=== PATIENT | female | born 1995 | race Two or more races ===

== ENCOUNTER 2020-07-23 03:41 | Inpatient (IN) | payer SELFPAY ==
[2020-07-23 04:36] LABS: APPEARANCE,URINE TURBID; BILIRUBIN,URINE NEGATIVE (NEGATIVE); COLOR,URINE PINK; GLUCOSE, URINE NEGATIVE (NEGATIVE); KETONES,URINE NEGATIVE (NEGATIVE); LEUKOCYTE ESTERASE,URINE SMALL (NEGATIVE); NITRITE,URINE NEGATIVE (NEGATIVE); PROTEIN,URINE 100 mg/dL (NEGATIVE); URINE SPECIFIC GRAVITY 1.009; UROBILINOGEN,URINE NEGATIVE mg/dL (<2.0)
[2020-07-23] MEDS ORDERED: RINGERS SOLUTION,LACTATED 1,000 ML IV ONE (04:56)
[2020-07-23] MEDS ORDERED: RINGERS SOLUTION,LACTATED 1,000 ML IV PRN (04:56)
[2020-07-23] MEDS ORDERED: PENICILLIN G POTASSIUM 5,000,000 UNIT in DEXTROSE 5%-WATER 100 ML IV ONE (04:56)
[2020-07-23] MEDS ORDERED: PENICILLIN G-K 5 MILLION UNIT VIAL ONE (05:02)
[2020-07-23] MEDS ORDERED: OXYTOCIN/0.9 % SODIUM CHLORIDE 30 UNIT/500 ML RTUINJ ONE (05:30)
[2020-07-23] MEDS ORDERED: LIDOCAINE 1% INJ-PF (10 MG/ML) 30 ML SDV ONE (05:30)
[2020-07-23] MEDS ORDERED: MISOPROSTOL 0.2 MG TABLET ONE (05:30)
[2020-07-23] MEDS ORDERED: OXYTOCIN 10 UNIT/ML VIAL ONE (05:30)
[2020-07-23 05:34] LABS: ABSOLUTE LYMPHOCYTES (AUTO) 3.2 10^3/uL (0.5-4.7); ABSOLUTE MONOCYTES (AUTO) 0.8 10^3/uL (0.1-1.4); BASOPHILS % (AUTO) 0.3 % (0-2); EOSINOPHILS % (AUTO) 0.3 % (0-6); HEMATOCRIT 37.4 % (36.0-47.0); HEMOGLOBIN 12.9 g/dL (12.0-15.5); LYMPHOCYTES % (AUTO) 35.8 % (13-45); MEAN CORPUSCULAR HEMOGLOBIN 29.4 pg (27.0-33.4); MEAN CORPUSCULAR HGB CONC 34.4 g/dL (32.0-36.0); MEAN CORPUSCULAR VOLUME 85 fl (80-97); MONOCYTES % (AUTO) 8.6 % (3-13); PLATELET COUNT 242 10^3/uL (150-450); RED BLOOD COUNT 4.39 10^6/uL (3.72-5.28); RED CELL DISTRIBUTION WIDTH 14.5 % (11.5-14.0); TOTAL CELLS COUNTED % (AUTO) 100 %
--- NOTE | 2020-07-23 05:53 | Admission Physical ---
Datetime Report Generated by CPN: 07/23/2020 05:52 CURRENT ADMISSION Chief Complaint: Uterine Contractions Indication for Induction: Not Applicable Admit Impression : Term, Intrauterine Admit Plan: Admit to Unit; Initiate Labor Protocol ALLERGIES Medication Allergies: No Medication Allergies: no Latex: No Latex Allergies Food Allergies: no Environmental Allergies: no OBSTETRICAL HISTORY EDC: 08/04/2020 00:00 : 2 Para: 1 Term: 1 : 0 SAB: 0 IAB: 0 Ectopic: 0 Livin Cesareans: 0 VBACs: 0 Multiple Births: 0 Gestational Diabetes: No Rh Sensitization: No Incompetent Cervix: No DALE: No Infertility: No ART Treatment: No Uterine Anomaly: No IUGR: No Hx Previous C/S: No Macrosomia: No Hx Loss/Stillborn: No PIH: No Hx : No Placenta Previa/Abruption: No Depression/PP Depression: No PTL/PROM: No Post Hemorrhage: No Current Procedures: Ultrasound SEE RECORDS Alcohol: No Marijuana : No Cocaine: No Other Illicit Drugs: No Advised to Stop: No MEDICAL HISTORY Diabetes: No Blood Transfusion: No Pulmonary Disease (Asthma, TB): No Breast Disease: No Hypertension: No Manager Management Surgery: No Heart Disease: No Hosp/Surgery: No Autoimmune Disorder: No Anesthetic Complications: No Kidney Disease: No Abnormal Pap Smear: No Neuro/Epilepsy: No Psychiatric Disorders: No Other Medical Diseases: No Hepatitis/Liver Disease: No Significant Family History: No Varicosities/Phlebitis: No Trauma/Violence : No Thyroid Dysfunction: No INFECTIOUS HISTORY Gonorrhea: No Genital Herpes: No Chlamydia: Yes Tuberculosis: No Syphilis: No Hepatitis: No HIV/AIDS Exposure: No Rash or Viral Illness: No HPV: No PHYSICAL EXAM General: Normal HEENT: Normal Neurologic: Normal Thyroid: Normal Heart: Normal Lungs: Normal Breast: Deferred Back: Normal Abdomen: Normal Genitourinary Exam: Normal Extremities: Normal DTRs: Normal Pelvic Type: Adequate FETUS A EGA: 38.2 PLANS FOR LABOR AND DELIVERY Feeding Preference: Formula (Annotations: Data stored by CPN on behalf of user) INFORMED CONSENT Signature: with User ID: [email or web address]
[2020-07-23] MEDS ORDERED: ACETAMINOPHEN WITH CODEINE #3 TABLET PO PRN (06:10)
[2020-07-23] MEDS ORDERED: MEASLES,MUMPS&RUBELLA VACC/PF 0.5 ML VIAL SUBCUT PRN (06:10)
[2020-07-23] MEDS ORDERED: MAGNESIUM HYDROXIDE SUSP 30 ML UDCUP PO PRN (06:10)
[2020-07-23] MEDS ORDERED: PROMETHAZINE HCL INJ 25 MG/1 ML VIAL IV PRN (06:10)
[2020-07-23] MEDS ORDERED: OXYTOCIN/0.9 % SODIUM CHLORIDE 30 UNIT/500 ML RTUINJ IV PRN (06:10)
[2020-07-23] MEDS ORDERED: NA PHOS,M-B/NA PHOS,DI-BA (ADULT) 133 ML ENEMA PR PRN (06:10)
[2020-07-23] MEDS ORDERED: PROMETHAZINE HCL 25 MG SUPP.RECT PR PRN (06:10)
[2020-07-23] MEDS ORDERED: DIBUCAINE 1% OINTMENT 28 GM TP PRN (06:10)
[2020-07-23] MEDS ORDERED: DIPHENHYDRAMINE HCL 25 MG CAPSULE PO PRN (06:10)
[2020-07-23] MEDS ORDERED: DIPH/PERTUSS(ACELL)/TETANUS VAC/PF 0.5 ML SYR (>=10YO) IM PRN (06:10)
[2020-07-23] MEDS ORDERED: ZOLPIDEM TARTRATE 5 MG TABLET PO PRN (06:10)
[2020-07-23] MEDS ORDERED: PROMETHAZINE HCL 25 MG TABLET PO PRN (06:10)
[2020-07-23] MEDS ORDERED: PSEUDOEPHEDRINE HCL 30 MG TABLET PO PRN (06:10)
[2020-07-23] MEDS ORDERED: BENZOCAINE/MENTHOL AEROSOL SPRAY 56 ML TOP PRN (06:10)
[2020-07-23] MEDS ORDERED: ACETAMINOPHEN 650 MG SUPP.RECT PR PRN (06:10)
[2020-07-23] MEDS ORDERED: GLYCERIN/WITCH HAZEL LEAF 1 EACH MED..WIPE TP PRN (06:10)
[2020-07-23] MEDS ORDERED: IBUPROFEN 800 MG TABLET ONE (06:30)
[2020-07-23] MEDS ORDERED: IBUPROFEN 800 MG TABLET PO ONE (07:00)
--- NOTE | 2020-07-23 07:18 | Delivery Summary ---
Del Sum A-C Datetime Report Generated by CPN: 07/23/2020 07:18 DELIVERY PERSONNEL DELIVERY PERSONNEL: [id number] Delivery Doctor:: Tristin Dorantes, MD Labor and Delivery Nurse:: Mady Randall RN Nursery Nurse:: Afsaneh Martel, RNC MATERNAL INFORMATION Delivery Anesthesia: None Medications After Delivery: Pitocin 30 Units in 500ml NS/D5W Delivery QBL: 88 Maternal Complications: None LABOR SUMMARY EDC: 08/04/2020 00:00 No. Babies in Womb: 1 Attempted: No Labor Anesthesia: None LABOR INFORMATION Reason for Induction: Not Applicable Onset of Labor: 07/23/2020 02:00 Complete Dilatation: 07/23/2020 05:27 Oxytocin: N/A Group B Beta Strep: pos Antibiotics # of Doses: 1 Antibiotics Time of Last Dose: 07/23/2020 05:27 Name of Antibiotic Given: Penicillin Steroids Given: None Reason Steroids Not Administered: Not Applicable MEMBRANES Membranes Rupture Method: Spontaneous Rupture of Membranes: 07/23/2020 02:00 Length of Rupture (hr): 3.95 Amniotic Fluid Color: Clear Amniotic Fluid Amount: Small STAGES OF LABOR Stage 1 hr: 3 Stage 1 min: 27 Stage 2 hr: 0 Stage 2 min: 30 Stage 3 hr: 0 Stage 3 min: 6 Total Time in Labor hr: 4 Total Time in Labor min: 3 VAGINAL DELIVERY Episiotomy: None Laceration #1: None Laceration Extension #1: N/A Laceration Repair: Not Applicable Sponge Count Correct: Yes Sharps Count Correct: Yes CSECTION DELIVERY Primary Indication: N/A BABY A INFORMATION Delivery Date/Time: 07/23/2020 05:57 Method of Delivery: Vaginal Nurse Controlled Delivery: No Born in Route : No : N/A Forceps: N/A Vacuum Extraction: N/A Shoulder Dystocia : No PRESENTATION/POSITION BABY A Presentation: Cephalic Cephalic Presentation: Vertex Vertex Position: Right Occipital Anterior Breech Presentation: N/A PLACENTA INFORMATION BABY A Placenta Delivery Time : 07/23/2020 06:03 Placenta Method of Delivery: Spontaneous Placenta Status: Delivered SCORES BABY A Heart Rate 1 min: >100 bpm Resp Effort 1 min: Good Cry Reflex Irritability 1 min: Cough or Sneeze or Pulls Away Muscle Tone 1 min: Active Motion Color 1 min: Body [place], Extremities Blue Resuscitation Effort 1 min: Tactile Stimulation SCORE 1 MIN: 9 Heart Rate 5 min: >100 bpm Resp Effort 5 min: Good Cry Reflex Irritability 5 min: Cough or Sneeze or Pulls Away Muscle Tone 5 min: Active Motion Color 5 min: Body [place], Extremities Blue Resuscitation Effort 5 min: Tactile Stimulation SCORE 5 MIN: 9 INFORMATION BABY A Gestational Age at Delivery: 38.2 Gestational Status: Early Term- 37- 38.6 Weeks Infant Outcome : Liveborn Condition : Stable Infant Sex: Female IDENTIFICATION BABY A Infant Verification Date/Time: 07/23/2020 06:18 ID Band Number: [id number] Mother's Name Verified: Yes Infant RN Verifying : Alf Randall, RN Additional Verifying Personnel: SDae Mckeon, VISITING HOUSEKEEPER WEIGHT/LENGTH BABY A Infant Birthweight (gm): 2777 Infant Weight (lb): 6 Weight (oz): 2 Infant Length (in): 19.00 Length (cm): 48.26 CORD INFORMATION BABY A No. Cord Vessels: 3 Nuchal Cord : Around Neck x1, Tight Cord Blood Taken: Yes-For Eval (Mom's Blood Type - or O+) Suction: None ASSESSMENT BABY A Complications: None Physical Findings at Delivery: Within Normal Limits Infant Respirations: Appears Normal Technology Applications Teacher/ALS Called : No Care By: DDae Mccormackavance, RNC Transferred To: Remains with Mother BABY B INFORMATION : N/A SIGNATURES Signature: with User ID: [email or web address]
--- NOTE | 2020-07-23 07:18 | Birth Certificate Data ---
Cert Data Datetime Report Generated by CPJose: 07/23/2020 07:18 CERTIFICATE DATA 47a. Care: Yes (07/23/2020 03:47:MINNIE Vega) 47b. Date of First Visit: 05/19/2020 00:00 (07/23/2020 03:47:MINNIE Vega) 47c. Date of Last Visit: 07/18/2020 00:00 (07/23/2020 03:47:MINNIE Vega) 47d. Number of Visits: 6 (07/23/2020 03:47:MINNIE Vega) 48a. Number of Prev Live Births: 1 (07/23/2020 03:47:MINNIE Vega) 48b. Now Livin (07/23/2020 03:47:MINNIE Vega) 48c. Live Births Now : 0 (07/23/2020 03:47:QS system process) 48e. Losses: 0 (07/23/2020 03:47:Brigid Martel, RNC) RISK FACTORS IN THIS 49a. Diabetes: No (07/23/2020 03:47:Mady Randall RN) 49b. Hypertension: No (07/23/2020 03:47:Mady Randall RN) 49c. Previous Births: 0 (07/23/2020 03:47:MINNIE Vega) 49d. Stillborns: No (07/23/2020 03:47:Mady Randall RN) 49d. IUGR: No (07/23/2020 03:47:Mady Randall RN) 49e. Infertility Treatment: No (07/23/2020 03:47:Mady Randall RN) 49f. Previous Cesareans: 0 (07/23/2020 03:47:Brigid Martel RNC) Mother's Height 50b. Height Inches: 60 (07/23/2020 03:55:QS system process) Mother's Weight 51a. Pre- Weight (lbs): 150 (07/23/2020 03:47:MINNIE Vega) 51b. Weight at Delivery (lbs): 158 (07/23/2020 03:55:QS system process) Infections Present/Treated 53a. Gonorrhea: No (07/23/2020 03:47:Mady Randall RN) Results this Hospital Visit : Negative (07/23/2020 03:47:MINNIE Vega) 53b. Syphilis: No (07/23/2020 03:47:Mady Randall RN) 53c. Chlamydia: Yes (07/23/2020 03:47:Mady Randall RN) Results this Hospital Visit: Negative (07/23/2020 03:47:MINNIE Vega) 53d. Hepatitis B: No (07/23/2020 03:47:Mady Randall RN) Results this Hospital Visit: Negative (07/23/2020 03:47:MINNIE Vega) 53e. Hepatitis C: Negative (07/23/2020 03:47:MINNIE Vega) 53h. Mother Tested for HBsAG: Yes (07/23/2020 03:47:Brigid Martel, RNC) 53i. Date Tested: 03/03/2020 00:00 (07/23/2020 03:47:Brigid Martel, RNC) 53j. Test Result: Negative (07/23/2020 03:47:Brigid Martel, RNC) Obstetric Procedures 54a, b, c. Obstetric Procedures: Ultrasound (07/23/2020 03:47:Mady Randall RN) Onset of Labor 56a. PROM >12 Hrs: 3.95 (07/23/2020 03:47:QS system process) 56b. Precipitous Labor <3 Hrs: 4 (07/23/2020 03:47:QS system process) 56c. Prolonged Labor > 20 Hrs: 4 (07/23/2020 03:47:QS system process) 57a. Induction of Labor: N/A (07/23/2020 03:47:Xiao Gonzalez RN) 57c. Non-Vertex Presentation A: Vertex (07/23/2020 03:47:Xiao Gonzalez RN) 57d. Steroids - Lung Mat: None (07/23/2020 03:47:Xiao Gonzalez RN) 57d. Steroids - Lung Mat: Not Applicable (07/23/2020 03:47:Xiao Gonzalez RN) 57e. Antibiotics During Labor: 07/23/2020 05:27 (07/23/2020 03:47:Xiao Gonzalez RN) 57f. Mat [place] or Temp >100.4: 97.6 (07/23/2020 03:47:Xiao Gonzalez RN) 57g. Moderate/Heavy Meconium: Clear (07/23/2020 03:47:Mady Randall RN) 57h. Intolerance of Labor: N/A (07/23/2020 03:47:Xiao Gonzalez RN) 57i. Epidural/Spinal Anesthesia: None (07/23/2020 03:47:Xiao Gonzalez RN) Method of Delivery 58a. Forceps - Unsuccessful A: N/A (07/23/2020 03:47:Xiao Gonzalez RN) 58b. Vacuum - Unsuccessful A: N/A (07/23/2020 03:47:Xiao Gonzalez RN) 58c. Presentation at 58c. Presentation at - A : Vertex (07/23/2020 03:47:Xiao Gonzalez RN) 58c. Presentation at - A : N/A (07/23/2020 03:47:Xiao Gonzalez RN) 58c. Presentation at - A : Cephalic (07/23/2020 04:15:Mady Randall RN) Final Route and Method of Del 58d. Baby A Route/Delivery: Vaginal (07/23/2020 05:57:Mady Randall RN) 58e. Trial of Labor Attempted: No (07/23/2020 03:47:Xiao Gonzalez RN) 58e. Trial of Labor Attempted A: N/A (07/23/2020 03:47:Xiao Gonzalez RN) 58e. Trial of Labor Attempted B: N/A (07/23/2020 03:47:Xiao Marhefka, RN) Maternal Morbidity 59b. 3rd or 4th Degree Lacs: None (07/23/2020 03:47:Mady Randall RN) Birthweight Baby A: 2777 (07/23/2020 03:47:Pauline Vigil RN) 60a. Pounds : 6 (07/23/2020 03:47:QS system process) 60b. Ounces: 2 (07/23/2020 03:47:QS system process) 61. GA at Delivery Baby A: 38.2 (07/23/2020 03:47:Xiao Gonzalez RN) : Early Term- 37- 38.6 Weeks (07/23/2020 03:47:QS system process) 62a. 5 Minute Baby A: 9 (07/23/2020 03:47:QS system process)
--- NOTE | 2020-07-23 08:49 | Warning Signs in Babies ---
VOD Warning Signs Datetime Report Generated by [facility]: 07/23/2020 08:49 VOD#608 -Warning Signs in Babies: Needs to be viewed. (07/23/2020 03:47:Eryn Hendricks RN)
[2020-07-23] MEDS: IBUPROFEN 800 MG TABLET PO SCH ×2 (13:53→22:55)
[2020-07-23] MEDS: DOCUSATE SODIUM 100 MG CAPSULE PO SCH ×2 (17:34→17:38)
[2020-07-23] MEDS: FERROUS SULFATE 325 MG TABLET PO SCH ×2 (17:34→17:38)
[2020-07-23] MEDS: PENICILLIN G POTASSIUM 2,500,000 UNIT in DEXTROSE 5%-WATER 50 ML IV SCH (17:34)
[2020-07-23] MEDS: SENNOSIDES/DOCUSATE 8.6-50 MG 1 EACH TABLET PO SCH (17:35)
[2020-07-23] MEDS: PRENATAL VITAMIN W DHA CAPSULE PO SCH (17:35)
[2020-07-23] MEDS: FAMOTIDINE 20 MG TABLET PO SCH ×2 (17:35→22:55)
[2020-07-24] MEDS: PENICILLIN G POTASSIUM 2,500,000 UNIT in DEXTROSE 5%-WATER 50 ML IV SCH ×2 (01:48→05:43)
[2020-07-24] MEDS: IBUPROFEN 800 MG TABLET PO SCH ×3 (05:39→22:23)
[2020-07-24 07:44] LABS: HEMATOCRIT 34.9 % (36.0-47.0); HEMOGLOBIN 11.7 g/dL (12.0-15.5); MEAN CORPUSCULAR HEMOGLOBIN 29.1 pg (27.0-33.4); MEAN CORPUSCULAR HGB CONC 33.5 g/dL (32.0-36.0); MEAN CORPUSCULAR VOLUME 87 fl (80-97); PLATELET COUNT 217 10^3/uL (150-450); RED BLOOD COUNT 4.02 10^6/uL (3.72-5.28); RED CELL DISTRIBUTION WIDTH 14.8 % (11.5-14.0); WHITE BLOOD COUNT 11.1 10^3/uL (4.0-10.5)
[2020-07-24] MEDS: FERROUS SULFATE 325 MG TABLET PO SCH ×2 (09:40→17:59)
[2020-07-24] MEDS: DOCUSATE SODIUM 100 MG CAPSULE PO SCH ×2 (09:40→17:59)
[2020-07-24] MEDS: FAMOTIDINE 20 MG TABLET PO SCH ×2 (09:41→22:24)
[2020-07-24] MEDS: SENNOSIDES/DOCUSATE 8.6-50 MG 1 EACH TABLET PO SCH (09:41)
[2020-07-24] MEDS: PRENATAL VITAMIN W DHA CAPSULE PO SCH (09:41)
--- NOTE | 2020-07-24 13:29 | PDOC PROGRESS REPORT ---
Subjective-OB Progress Note for:: 07/24/20 Subjective: doing well, no complaints Physical Exam (OB) Vital Signs: Temp Pulse Resp BP Pulse Ox 97.7 F 72 17 109/51 L 98 07/23/20 21:36 07/23/20 21:36 07/23/20 21:36 07/23/20 21:36 07/23/20 21:36 Intake & Output 07/23/20 07/24/20 07/25/20 06:59 06:59 06:59 Intake Total 1250 Balance 1250 Weight 71.7 kg - Maternal Morbidity 59. Maternal Morbidity (serious complications experinced by the mother associated with labor and delivery: None of the above - Abdomen Description: Soft Hernia Present: No Fundal Description: Firm, Midline Fundal Height: u/u - u/2 - Abdominal Distension: No distension Tenderness: Nontender - Extremities Lower extremities: Lexus's sign - neg Calf: Normal, Nontender Objective-Diagnostic Laboratory: 07/24/20 07:07 07/24/20 07:07 WBC 11.1 H RBC 4.02 Hgb 11.7 L Hct 34.9 L MCV 87 MCH 29.1 MCHC 33.5 RDW 14.8 H Plt Count 217 Assessment and Plan(PN) - Time Spent with Patient Time with patient: Less than 15 minutes Medications reviewed and adjusted accordingly: Yes - Disposition Anticipated Discharge Disposition: Home, Self Care Anticipated Discharge Timeframe: within 24 hours
[2020-07-24] MEDS ORDERED: DIPH/PERTUSS(ACELL)/TETANUS VAC/PF 0.5 ML SYR (>=10YO) IM PRN (15:30)
[2020-07-24] MEDS ORDERED: MEASLES,MUMPS&RUBELLA VACC/PF 0.5 ML VIAL SUBCUT PRN (15:30)
[2020-07-24] MEDS ORDERED: PROMETHAZINE HCL INJ 25 MG/1 ML VIAL IV PRN (15:30)
[2020-07-25] MEDS: IBUPROFEN 800 MG TABLET PO SCH ×2 (07:41→13:34)
[2020-07-25] MEDS ORDERED: INFLUENZA QUAD (6MOS+) 2020-21 VAC 0.5 ML SYR IM ONE (08:00)
[2020-07-25 08:21] VITALS: BP 116/60
--- NOTE | 2020-07-25 11:11 | PDOC DISCHARGE SUMMARY ---
Impression - Admit/DC Date/PCP Admission Date/Primary Care Provider: 07/23/20 05:00 DANGELO ANNE MD Discharge Date: 07/25/20 - PP day #2, doing well, no complaints, O+, Rubella immune, breast and bottlefeeding, denies increased bleeding and pain - Discharge Diagnosis (1) (normal spontaneous vaginal delivery) Is this a current diagnosis for this admission?: Yes (2) Normal course Is this a current diagnosis for this admission?: Yes - Additional Information Resuscitation Status: Full Code Discharge Diet: As Tolerated Discharge Activity: Activity As Tolerated, No Lifting Over 10 Pounds, Pelvic Rest Referrals: DANGELO ANNE MD [Primary Care Provider] - Prescriptions: Ibuprofen [Motrin 800 mg Tablet] 800 mg PO Q8 #60 tablet Home Medications: Ibuprofen [Motrin 800 mg Tablet] 800 mg PO Q8 #60 tablet 07/25/20 Vit/Dha [ Multi + Dha Capsule] 1 cap PO DAILY capsule 07/25/20 HPI Reason(s) for Admission: Onset of Labor Procedures: Ultrasound Intrapartum Procedure(s): Spontaneous Vaginal Delivery Hospital Course Hospital Course: normal 59. Maternal Morbidity (serious complications experinced by the mother associated with labor and delivery: None of the above Results Laboratory Results: WBC 11.1 10^3/uL (4.0-10.5) H 07/24/20 07:07 RBC 4.02 10^6/uL (3.72-5.28) 07/24/20 07:07 Hgb 11.7 g/dL (12.0-15.5) L 07/24/20 07:07 Hct 34.9 % (36.0-47.0) L 07/24/20 07:07 MCV 87 fl (80-97) 07/24/20 07:07 MCH 29.1 pg (27.0-33.4) 07/24/20 07:07 MCHC 33.5 g/dL (32.0-36.0) 07/24/20 07:07 RDW 14.8 % (11.5-14.0) H 07/24/20 07:07 Plt Count 217 10^3/uL (150-450) 07/24/20 07:07 Lymph % (Auto) 35.8 % (13-45) 07/23/20 05:17 [place] % (Auto) 8.6 % (3-13) 07/23/20 05:17 Eos % (Auto) 0.3 % (0-6) 07/23/20 05:17 Baso % (Auto) 0.3 % (0-2) 07/23/20 05:17 Absolute Neuts (auto) 5.0 10^3/uL (1.7-8.2) 07/23/20 05:17 Absolute Lymphs (auto) 3.2 10^3/uL (0.5-4.7) 07/23/20 05:17 Absolute Monos (auto) 0.8 10^3/uL (0.1-1.4) 07/23/20 05:17 Absolute Eos (auto) 0.0 10^3/uL (0.0-0.6) 07/23/20 05:17 Absolute Basos (auto) 0.0 10^3/uL (0.0-0.2) 07/23/20 05:17 Seg Neutrophils % 55.0 % (42-78) 07/23/20 05:17 Urine Color PINK 07/23/20 04:00 Urine Appearance TURBID 07/23/20 04:00 Urine pH 8.0 (5.0-9.0) 07/23/20 04:00 Ur Specific [place] 1.009 07/23/20 04:00 Urine Protein 100 mg/dL (NEGATIVE) H 07/23/20 04:00 Urine Glucose (UA) NEGATIVE mg/dL (NEGATIVE) 07/23/20 04:00 Urine Ketones NEGATIVE mg/dL (NEGATIVE) 07/23/20 04:00 Urine Blood LARGE (NEGATIVE) H 07/23/20 04:00 Urine Nitrite NEGATIVE (NEGATIVE) 07/23/20 04:00 Urine Bilirubin NEGATIVE (NEGATIVE) 07/23/20 04:00 Urine Urobilinogen NEGATIVE mg/dL (<2.0) 07/23/20 04:00 Ur Leukocyte Esterase SMALL (NEGATIVE) H 07/23/20 04:00 Urine Ascorbic Acid NEGATIVE (NEGATIVE) 07/23/20 04:00 Membranes Rupture POSITIVE (NEGATIVE) H 07/23/20 04:00 Urine Opiates Screen Cancelled 07/23/20 04:00 Urine Methadone Screen Cancelled 07/23/20 04:00 Ur Barbiturates Screen Cancelled 07/23/20 04:00 Ur Phencyclidine Scrn Cancelled 07/23/20 04:00 Ur Amphetamines Screen Cancelled 07/23/20 04:00 U Benzodiazepines Scrn Cancelled 07/23/20 04:00 Urine Cocaine Screen Cancelled 07/23/20 04:00 U Marijuana (THC) Screen Cancelled 07/23/20 04:00 RPR NONREACTIVE (NONREACTIVE) 07/23/20 05:17 Blood Type O POSITIVE 07/23/20 05:17 Antibody Screen NEGATIVE 07/23/20 05:17 Plan Plan of Treatment: d/c home, f/up with [facility] in 4 wks Time Spent: Less than 30 Minutes
[2020-07-25] MEDS: SENNOSIDES/DOCUSATE 8.6-50 MG 1 EACH TABLET PO SCH (13:34)
[2020-07-25] MEDS: FERROUS SULFATE 325 MG TABLET PO SCH (13:34)
[2020-07-25] MEDS: FAMOTIDINE 20 MG TABLET PO SCH (13:34)
[2020-07-25] MEDS: PRENATAL VITAMIN W DHA CAPSULE PO SCH (13:34)
[2020-07-25] MEDS: DOCUSATE SODIUM 100 MG CAPSULE PO SCH (13:35)
== END 2020-07-25 15:35 | disposition home or self-care (01) | DRG 807 ==
LOC: EDBD 03:41 → LC 03:41 → LR 05:00 → 2S 10:09
PROVIDERS: ADMIT Obstetrics & Gynecology Gynecology; ATTEND Obstetrics & Gynecology Gynecology
PROC: 10E0XZZ Delivery of Products of Conception, External Approach (ICD-10-PCS; principal; 2020-07-23)
DX: O99.824 Streptococcus B carrier state complicating childbirth (principal); Z37.0 Single live birth; O69.1XX0 Labor and delivery complicated by cord around neck, with compression, not applicable or unspecified; Z3A.38 38 weeks gestation of pregnancy
CPT/HCPCS: 36415; 81005; 84112; 85025; 85027; 86592; 86850; 86900; 86901; 90686; J2540; J2590; J3490; J7060